=== PATIENT | male | born 1990 | race Caucasian/White ===

== ENCOUNTER 2018-04-28 15:31 | Emergency (ER) | payer BC ==
[2018-04-28] MEDS ORDERED: Acetaminophen/HYDROcodone 325-5 MG Tab PO ONE (15:46)
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
--- NOTE | 2018-04-28 16:45 | CR ---
INDICATION: Pain 2 views of the right shoulder. Findings: Normal articulation of the glenohumeral joint. No fractures or dislocations. Dictated by Ansley Clayton MD @ Apr 28 2018 4:44PM Signed by Dr. Ansley Clayton @ Apr 28 2018 4:44PM
[2018-04-28 20:53] VITALS: BP 142/87
== END 2018-04-28 17:25 | disposition home or self-care (01) ==
LOC: MW.ED 15:31
DX: S49.91XA Unspecified injury of right shoulder and upper arm, initial encounter (principal); W20.8XXA Other cause of strike by thrown, projected or falling object, initial encounter
CPT/HCPCS: 73030; 99283; A9270

== ENCOUNTER 2018-09-03 15:59 | Emergency (ER) | payer BC, OTHER ==
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
[2018-09-03] MEDS ORDERED: Ketorolac 60 MG/2 ML SDV IM ONE (16:25)
[2018-09-03] MEDS ORDERED: Lidocaine/Prilocaine 2.5-2.5% Crm 30 GM Tube TOP ONE ×2 (17:32→17:50)
[2018-09-03] MEDS ORDERED: Bacitracin Oint 1 GM U/D Packet TOP ONE (17:47)
[2018-09-03 18:15] VITALS: BP 158/95
== END 2018-09-03 18:17 | disposition home or self-care (01) ==
LOC: MW.ED 15:59
DX: T65.891A Toxic effect of other specified substances, accidental (unintentional), initial encounter (principal); T24.511A Corrosion of first degree of right thigh, initial encounter; Y99.0 Civilian activity done for income or pay
CPT/HCPCS: 96372; 99283; J1885

== ENCOUNTER 2018-11-23 12:39 | Emergency (ER) | payer BC ==
[2018-11-23] MEDS ORDERED: Ondansetron 4 MG/2 ML SDV IVPUSH ONE (12:43)
[2018-11-23] MEDS ORDERED: Sodium Chloride 0.9% 1,000 ML IV ONE (12:43)
[2018-11-23] MEDS ORDERED: Sodium Chloride 0.9% 10 ML Syringe FLUSH PRN (12:43)
[2018-11-23] MEDS ORDERED: Sodium Chloride 0.9% 2.5 ML Syringe FLUSH PRN (12:43)
--- NOTE | 2018-11-23 12:52 | EDM.PDOC ---
<Hailey Hunter - Last Filed: 11/23/18 14:12> ED HPI GENERAL MEDICAL PROBLEM - General Chief Complaint: Respiratory Problem Stated Complaint: SOB,VOMITING Time Seen by Provider: 11/23/18 12:41 - History of Present Illness INITIAL COMMENTS - FREE TEXT/NARRATIVE: HISTORY AND PHYSICAL: History of present illness: Patient is a 27-year-old male presents to the ED with complaint nausea, vomiting , and shortness of breath. He states he woke up this morning feeling sick to his stomach and short of breath and vomited. He states there was a small amount of blood in his vomit at that time. He vomited a second time and states it was boris red blood. He denies chest pain, abdominal pain, fevers, chills. He states he's had a cough since this morning. He denies significant past medical or surgical history. He denies smoking history. States he drinks socially and had "quite a few" drinks last night. He states he feels like he has something stuck in his throat. He is able to swallow without difficulty. Denies sore throat. Review of systems: As per history of present illness and below otherwise all systems reviewed and negative. Past medical history: As per history of present illness and as reviewed below otherwise noncontributory. Surgical history: As per history of present illness and as reviewed below otherwise noncontributory. Social history: No reported history of drug or alcohol abuse. Family history: As per history of present illness and as reviewed below otherwise noncontributory. Physical exam: General: Patient sitting comfortably in no acute distress and nontoxic appearing HEENT: Uvula is slightly swollen without erythema. Tonsils not visualized. Atraumatic, normocephalic, pupils reactive, negative for conjunctival pallor or scleral icterus, mucous membranes moist, throat clear, neck supple, nontender, trachea midline. No meningeal signs. Lungs: Clear to auscultation, breath sounds equal bilaterally, chest nontender. Heart: S1S2, regular, negative for clicks, rubs, or overt murmur. Abdomen: Soft, nondistended, nontender. Negative for masses or hepatosplenomegaly. Negative for costovertebral tenderness. No rigidity, rebound , guarding. Pelvis: Stable nontender. Genitourinary: Deferred. Rectal: Deferred. Extremities: Atraumatic, negative for cords or calf pain. Neurovascular unremarkable. Neuro: Awake, alert, oriented. Cranial nerves II through XII unremarkable. Cerebellum unremarkable. Motor and sensory unremarkable throughout. Exam nonfocal. Notes: Diagnostics: CBC, CMP, Chest x-ray Therapeutics: 1L NS IV 4mg Zofran IV 80mg Protonix IV Prescriptions: Pantoprazole 40mg Zofran 4mg ODT Medrol dosepak Impression: Gastritis Plan: Avoid NSAIDs and spicy food. Take medication as instructed Follow up with primary care provider Return to ED as needed as discussed Definitive disposition and diagnosis as appropriate pending reevaluation and review of above. - Related Data Allergies Allergy/AdvReac Type Severity Reaction Status Date / Time No Known Allergies Allergy Verified 11/23/18 12:44 Home Meds: Home Meds Ondansetron [Zofran ODT] 4 mg PO Q6H PRN #12 tab.dis 11/23/18 [Rx] Pantoprazole Sodium 40 mg PO DAILY #30 tablet.dr 11/23/18 [Rx] methylPREDNISolone [Medrol] 4 mg PO ASDIRECTED #1 tab.ds.pk 11/23/18 [Rx] ED ROS GENERAL - Review of Systems Review Of Systems: ROS reveals no pertinent complaints other than HPI. ED EXAM, GENERAL - Physical Exam Exam: See Below (see dictation) Course - Vital Signs Last Recorded V/S: Last Vital Signs Temp 97.2 F 11/23/18 14:39 Pulse 63 11/23/18 14:39 Resp 18 11/23/18 14:39 BP 150/80 H 11/23/18 14:39 Pulse Ox 97 11/23/18 14:39 - Orders/Labs/Meds Orders: Active Orders 24 hr Category Date Time Status Saline Lock Insert [OM.PC] Stat Oth 11/23/18 12:42 Ordered Labs: Laboratory Tests 11/23/18 11/23/18 Range/Units 13:10 13:10 WBC 4.74 (4.0-11.0) K/uL RBC 5.01 (4.50-5.90) M/uL Hgb 15.5 (13.0-17.0) g/dL Hct 45.8 (38.0-50.0) % MCV 91.4 (80.0-98.0) fL MCH 30.9 (27.0-32.0) pg MCHC 33.8 (31.0-37.0) g/dL RDW Std Deviation 45.3 (28.0-62.0) fl RDW Coeff of Leonarda 14 (11.0-15.0) % Plt Count 171 (150-400) K/uL MPV 12.40 H (7.40-12.00) fL Neut % (Auto) 55.5 (48.0-80.0) % Lymph % (Auto) 36.5 (16.0-40.0) % Dare % (Auto) 7.2 (0.0-15.0) % Eos % (Auto) 0.6 (0.0-7.0) % Baso % (Auto) 0.2 (0.0-1.5) % Neut # (Auto) 2.6 (1.4-5.7) K/uL Lymph # (Auto) 1.7 (0.6-2.4) K/uL Dare # (Auto) 0.3 (0.0-0.8) K/uL Eos # (Auto) 0.0 (0.0-0.7) K/uL Baso # (Auto) 0.0 (0.0-0.1) K/uL Nucleated RBC % 0.0 /100WBC Nucleated RBCs # 0 K/uL Sodium 144 (136-148) mmol/L Potassium 4.0 (3.5-5.1) mmol/L Chloride 107 (98-107) mmol/L Carbon Dioxide 23.6 (21.0-32.0) mmol/L BUN 12 (7.0-18.0) mg/dL Creatinine 1.1 (0.8-1.3) mg/dL Est Cr Clr Drug Dosing 108.76 mL/min Estimated GFR (MDRD) > 60.0 ml/min Glucose 108 H (74-106) mg/dL Calcium 9.4 (8.5-10.1) mg/dL Total Bilirubin 0.3 (0.2-1.0) mg/dL AST 36 (15-37) IU/L ALT 85 H (14-63) IU/L Alkaline Phosphatase 105 (46-116) U/L Total Protein 8.2 (6.4-8.2) g/dL Albumin 4.3 (3.4-5.0) g/dL Globulin 3.9 (2.6-4.0) g/dL Albumin/Globulin Ratio 1.1 (0.9-1.6) Meds: Medications Discontinued Medications Generic Name Dose Route Start Last Admin Trade Name Freq PRN Reason Stop Dose Admin Sodium Chloride 1,000 mls @ 999 mls/hr 11/23/18 12:43 11/23/18 13:14 Normal Saline IV 11/23/18 13:43 999 mls/hr .Bolus ONE Administration Sodium Chloride Confirm 11/23/18 13:19 11/23/18 13:44 Normal Saline Administered 11/23/18 13:20 Not Given Dose 20 mls @ as directed .ROUTE .STK-MED ONE Ondansetron HCl 4 mg 11/23/18 12:43 11/23/18 13:13 Zofran IVPUSH 11/23/18 12:44 4 mg ONETIME ONE Administration Pantoprazole Sodium 80 mg 11/23/18 12:59 11/23/18 13:22 Protonix Iv IVPUSH 11/23/18 13:00 80 mg .BOLUS ONE Administration Sodium Chloride 10 ml 11/23/18 12:43 Saline Flush FLUSH ASDIRECTED PRN Keep Vein Open Sodium Chloride 2.5 ml 11/23/18 12:43 Saline Flush FLUSH ASDIRECTED PRN Keep Vein Open Departure - Departure Time of Disposition: 14:15 Disposition: Home, Self-Care 01 Condition: Good Clinical Impression: Gastritis - Discharge Information Prescriptions: methylPREDNISolone [Medrol] 4 mg PO ASDIRECTED #1 tab.ds.pk Ondansetron [Zofran ODT] 4 mg PO Q6H PRN #12 tab.dis PRN Reason: Nausea/Vomiting Pantoprazole Sodium 40 mg PO DAILY #30 tablet.dr Instructions: Gastritis, Adult Referrals: PCP,Unknown [Primary Care Provider] - Forms: ED Department Discharge Additional Instructions: The following information is given to patients seen in the emergency department who are being discharged to home. This information is to outline your options for follow-up care. We provide all patients seen in our emergency department with a follow-up referral. The need for follow-up, as well as the timing and circumstances, are variable depending upon the specifics of your emergency department visit. If you don't have a primary care physician on staff, we will provide you with a referral. We always advise you to contact your personal physician following an emergency department visit to inform them of the circumstance of the visit and for follow-up with them and/or the need for any referrals to a consulting specialist. The emergency department will also refer you to a specialist when appropriate. This referral assures that you have the opportunity for follow-up care with a specialist. All of these measure are taken in an effort to provide you with optimal care, which includes your follow-up. Under all circumstances we always encourage you to contact your private physician who remains a resource for coordinating your care. When calling for follow-up care, please make the office aware that this follow-up is from your recent emergency room visit. If for any reason you are refused follow-up, please contact the [facility] Emergency Department at and asked to speak to the emergency department charge nurse. [facility] [address] [place] [id number] [place] [address] Avoid NSAIDs and spicy food. Take medication as instructed Follow up with primary care provider Return to ED as needed as discussed - My Orders Last 24 Hours: My Active Orders 11/23/18 12:42 Saline Lock Insert [OM.PC] Stat - Assessment/Plan Last 24 Hours: My Active Orders 11/23/18 12:42 Saline Lock Insert [OM.PC] Stat <Antonia Lazaro - Last Filed: 11/23/18 18:19> ED HPI GENERAL MEDICAL PROBLEM - General Source of Information: Reports: Patient History Limitations: Reports: No Limitations - History of Present Illness INITIAL COMMENTS - FREE TEXT/NARRATIVE: History of present illness: [] Review of systems: As per history of present illness and below otherwise all systems reviewed and negative. Past medical history: As per history of present illness and as reviewed below otherwise noncontributory. Surgical history: As per history of present illness and as reviewed below otherwise noncontributory. Social history: No reported history of drug or alcohol abuse. Family history: As per history of present illness and as reviewed below otherwise noncontributory. Physical exam: General: Well developed, well nourished in NAD HEENT: Atraumatic, normocephalic, pupils reactive, negative for conjunctival pallor or scleral icterus, mucous membranes moist, throat clear, neck supple, nontender, trachea midline. Lungs: Clear to auscultation, breath sounds equal bilaterally, chest nontender. Heart: S1S2, regular, negative for clicks, rubs, or JVD. Abdomen: NABS, Soft, nondistended, nontender. Negative for masses or hepatosplenomegaly. Negative for costovertebral tenderness. Pelvis: Stable nontender. Genitourinary: Deferred. Rectal: Deferred. Extremities: Atraumatic, negative for cords or calf pain. Neurovascular unremarkable. Neuro: Awake, alert, oriented. Cranial nerves II through XII unremarkable. Cerebellum unremarkable. Motor and sensory unremarkable throughout. Exam nonfocal. Skin:warm and dry Diagnostics: Therapeutics: ED Course: Impression: Prescriptions: Plan: Definitive disposition and diagnosis as appropriate pending reevaluation and review of above. throat Pain Score (Numeric/FACES): 6 Past Medical History - Past Health History Medical/Surgical History: Denies Medical/Surgical History HEENT History: Reports: None Cardiovascular History: Reports: None Respiratory History: Reports: None Gastrointestinal History: Reports: None Genitourinary History: Reports: None Musculoskeletal History: Reports: None Neurological History: Reports: None Psychiatric History: Reports: None Endocrine/Metabolic History: Reports: None Hematologic History: Reports: None Immunologic History: Reports: None Oncologic (Cancer) History: Reports: None Dermatologic History: Reports: None - Infectious Disease History Infectious Disease History: Reports: Chicken Pox - Past Surgical History Head Surgeries/Procedures: Reports: None HEENT Surgical History: Reports: Other (See Below) Other HEENT Surgeries/Procedures: Jaw surgery Cardiovascular Surgical History: Reports: None Respiratory Surgical History: Reports: None GI Surgical History: Reports: None Male Surgical History: Reports: None Endocrine Surgical History: Reports: None Neurological Surgical History: Reports: None Musculoskeletal Surgical History: Reports: None Oncologic Surgical History: Reports: None Dermatological Surgical History: Reports: None Social & Family History - Family History Family Medical History: Noncontributory - Tobacco Use Smoking Status *Q: Never Smoker - Caffeine Use Caffeine Use: Reports: Soda - Recreational Drug Use Recreational Drug Use: No Course - Orders/Labs/Meds Labs: Laboratory Tests 11/23/18 11/23/18 Range/Units 13:10 13:10 WBC 4.74 (4.0-11.0) K/uL RBC 5.01 (4.50-5.90) M/uL Hgb 15.5 (13.0-17.0) g/dL Hct 45.8 (38.0-50.0) % MCV 91.4 (80.0-98.0) fL MCH 30.9 (27.0-32.0) pg MCHC 33.8 (31.0-37.0) g/dL RDW Std Deviation 45.3 (28.0-62.0) fl RDW Coeff of Leonarda 14 (11.0-15.0) % Plt Count 171 (150-400) K/uL MPV 12.40 H (7.40-12.00) fL Neut % (Auto) 55.5 (48.0-80.0) % Lymph % (Auto) 36.5 (16.0-40.0) % Dare % (Auto) 7.2 (0.0-15.0) % Eos % (Auto) 0.6 (0.0-7.0) % Baso % (Auto) 0.2 (0.0-1.5) % Neut # (Auto) 2.6 (1.4-5.7) K/uL Lymph # (Auto) 1.7 (0.6-2.4) K/uL Dare # (Auto) 0.3 (0.0-0.8) K/uL Eos # (Auto) 0.0 (0.0-0.7) K/uL Baso # (Auto) 0.0 (0.0-0.1) K/uL Nucleated RBC % 0.0 /100WBC Nucleated RBCs # 0 K/uL Sodium 144 (136-148) mmol/L Potassium 4.0 (3.5-5.1) mmol/L Chloride 107 (98-107) mmol/L Carbon Dioxide 23.6 (21.0-32.0) mmol/L BUN 12 (7.0-18.0) mg/dL Creatinine 1.1 (0.8-1.3) mg/dL Est Cr Clr Drug Dosing 108.76 mL/min Estimated GFR (MDRD) > 60.0 ml/min Glucose 108 H (74-106) mg/dL Calcium 9.4 (8.5-10.1) mg/dL Total Bilirubin 0.3 (0.2-1.0) mg/dL AST 36 (15-37) IU/L ALT 85 H (14-63) IU/L Alkaline Phosphatase 105 (46-116) U/L Total Protein 8.2 (6.4-8.2) g/dL Albumin 4.3 (3.4-5.0) g/dL Globulin 3.9 (2.6-4.0) g/dL Albumin/Globulin Ratio 1.1 (0.9-1.6)
[2018-11-23] MEDS ORDERED: Pantoprazole 40 MG Vial IVPUSH ONE (12:59)
[2018-11-23] MEDS ORDERED: Sodium Chloride 0.9% 20 ML ONE (13:19)
[2018-11-23 13:41] LABS: BLOOD UREA NITROGEN,BUN 12 mg/dL (7.0-18.0); CARBON DIOXIDE,CO2 23.6 mmol/L (21.0-32.0); CHLORIDE,CL 107 mmol/L (98-107); GLUCOSE RANDOM 108 mg/dL (74-106); SODIUM,NA 144 mmol/L (136-148)
--- NOTE | 2018-11-23 14:02 | CR ---
INDICATION: Shortness of breath Findings: A single portable CXR shows a normal cardiac and mediastinal silhouette. The lungs show no focal pulmonary opacities. Sharp pleural margins. No pneumothorax. Impression: No evidence of acute pulmonary abnormalities. Dictated by: Mike Clayton MD @ 11/23/2018 14:02:22 (Electronically Signed)
[2018-11-23 14:39] VITALS: BP 150/80; PULSE 63
== END 2018-11-23 14:40 | disposition home or self-care (01) ==
LOC: MW.ED 12:39
DX: K29.70 Gastritis, unspecified, without bleeding (principal); Z79.899 Other long term (current) drug therapy
CPT/HCPCS: 36415; 71045; 80053; 85025; 96361; 96374; 96375; 99285; C9113; J2405; J7040

== ENCOUNTER 2020-07-30 16:47 | Emergency (ER) | payer OTHER ==
--- NOTE | 2020-07-30 17:05 | EDM.PDOC ---
ED HPI GENERAL MEDICAL PROBLEM - General Chief Complaint: Respiratory Problem Stated Complaint: TROUBLE BREATHING Time Seen by Provider: 07/30/20 16:48 Source of Information: Reports: Patient History Limitations: Reports: No Limitations - History of Present Illness INITIAL COMMENTS - FREE TEXT/NARRATIVE: HISTORY AND PHYSICAL: History of present illness: The patient is a 29-year-old male who started having Covid-like symptoms 14 days ago and tested 7 days ago positive presents to the emergency department with increased cough, shortness of breath, and headache. The patient stated he started feeling better yesterday but whenever he moves around the cough makes him short of breath and fatigue. Patient denies any fever, chills, change in vision, syncope or near syncope. Denies any chest pain, back pain. Denies any abdominal pain, nausea, vomiting, diarrhea, constipation or dysuria. Has not noted any blood in urine or stool. Patient has been eating and drinking appropriately. In the emergency department the patient is hemodynamically stable with a blood pressure of 140/86 and a pulse of 80. He is afebrile with a temperature of 97.2. Review of systems: As per history of present illness and below otherwise all systems reviewed and negative. Past medical history: As per history of present illness and as reviewed below otherwise noncontributory. Surgical history: As per history of present illness and as reviewed below otherwise noncontributory. Social history: See social history for further information Family history: As per history of present illness and as reviewed below otherwise noncontributory. Physical exam: General: Well developed and well nourished. Alert and orientated x 3. Nontoxic in appearance and in no acute distress. Vital signs are stable and have been reviewed by me. Nursing notes were reviewed. HEENT: Atraumatic, normocephalic, pupils equal and reactive bilaterally, negative for conjunctival pallor or scleral icterus, mucous membranes moist, TMs normal bilaterally, throat clear, neck supple, nontender, trachea midline. No drooling or trismus noted. No meningeal signs. No hot potato voice noted. Lungs: Clear to auscultation bilaterally. No wheezes, rales, or rhonchi. Chest nontender. Normal work of breathing, no accessory muscles used. Heart: S1S2, regular rate and rhythm without overt murmur, gallops, or rubs. No JVD. No peripheral edema Abdomen: Soft, nondistended, nontender. Normoactive bowel sounds. Negative for masses or costovertebral tenderness. Pelvis: Stable nontender. Genitourinary/Rectal: Deferred. Skin: Intact, warm, dry. No lesions or rashes noted. Hematologic: No petechiae or purpra. Mucosa appropriate color and normal nail bed color and refill. Extremities: Atraumatic, moves all extremities per self without difficulty or deficits, negative for cords or calf pain. Neurovascular unremarkable. Neuro: Awake, alert, oriented. Cranial nerves II through XII unremarkable. Cerebellum unremarkable. Motor and sensory unremarkable throughout. Exam nonfocal. Psychiatric: Mood and affect are appropriate. Normal thought process. Answering questions appropriately. Notes: *This patient was seen and evaluated during the 2019 SARS-CoV-2 novel coronavirus pandemic period. Community viral transmission is ongoing at time of this encounter and the emergency department is operating under pandemic response procedures. After discussion and examination the patient is agreeable to blood work and a chest x-ray. The radiology check just reported to me that the patient started swaying twice while in the x-ray department. Radiology reading of chest x-ray: IMPRESSION: Unremarkable chest. He is unremarkable. CMP: Creatinine 1.4, calcium 8.2. In the patient was given 1 L of IV fluids. His orthostatic vitals were negative. Post IV fluids the patient states he feels much better and is ready for discharge. I discussed with the patient the need to stay off work and follow-up with the public health department regarding his continued symptoms. The patient is agreeable to the plan I have talked with the patient about today's findings, in addition to providing specific details for plan of care. Reassessment at the time of disposition demonstrates that the patient is in no acute distress. The patient is stable for discharge, counseling was provided and we discussed in great detail signs and symptoms that would prompt them to return to the Emergency Department. Medication, follow up and supportive care measures were reviewed and discussed. Voices understanding and is agreeable to plan of care. Denies any further questions or concerns at this time. Diagnostics: CBC, CMP, CXR Therapeutics: IV fluids Prescription: Promethazine/codeine 5 ml every 4-6 hours as needed for cough with a max of 30 mL/day Impression: COVID-19 Plan: 1. You were evaluated today on an emergent basis. Your cough, fatigue and shortness of breath were evaluated with blood work, and a chest x-ray. Your blood work was essentially normal and your chest x-ray was negative. You were at the end of your 14-day quarantine for COVID-19, however, I will give you a note to take on most of next week. You need to get in contact with the local health department to let them know that you are having symptoms over the 14 days. Can you continue to take fluids such as Powerade or Gatorade. Continue to eat as normal. I have prescribed you promethazine with codeine 5 mils every 4-6 hours as needed for the cough with a max of 30 mL/day. 2. You can alternate Tylenol and ibuprofen as needed for pain and fever management. 3. We encourage you to follow up with your primary care provider and/or recommended specialist in the next few days for re-evaluation and further care/management. 4. If your symptoms should worsen, new symptoms develop or any of the signs and symptoms we discussed should arise please return to the emergency room or call 911 (if needed). Definitive disposition and diagnosis as appropriate pending reevaluation and review of above. chest Pain Score (Numeric/FACES): 2 - Related Data Allergies Allergy/AdvReac Type Severity Reaction Status Date / Time No Known Allergies Allergy Verified 07/30/20 16:59 Home Meds: Home Meds . [No Known Home Meds] 07/30/20 [History] Past Medical History - Past Health History Medical/Surgical History: Denies Medical/Surgical History HEENT History: Reports: None Cardiovascular History: Reports: None Respiratory History: Reports: None Gastrointestinal History: Reports: None Genitourinary History: Reports: None Musculoskeletal History: Reports: None Neurological History: Reports: None Psychiatric History: Reports: None Endocrine/Metabolic History: Reports: None Hematologic History: Reports: None Immunologic History: Reports: None Oncologic (Cancer) History: Reports: None Dermatologic History: Reports: None - Infectious Disease History Infectious Disease History: Reports: Chicken Pox - Past Surgical History Head Surgeries/Procedures: Reports: None HEENT Surgical History: Reports: Other (See Below) Other HEENT Surgeries/Procedures: Jaw surgery Cardiovascular Surgical History: Reports: None Respiratory Surgical History: Reports: None GI Surgical History: Reports: None Male Surgical History: Reports: None Endocrine Surgical History: Reports: None Neurological Surgical History: Reports: None Musculoskeletal Surgical History: Reports: None Oncologic Surgical History: Reports: None Dermatological Surgical History: Reports: None Social & Family History - Family History Family Medical History: No Pertinent Family History - Caffeine Use Caffeine Use: Reports: Soda ED ROS GENERAL - Review of Systems Review Of Systems: Comprehensive ROS is negative, except as noted in HPI. ED EXAM, GENERAL - Physical Exam Exam: See Below (See dictation) Course - Vital Signs Last Recorded V/S: Last Vital Signs Temp 97.2 F 07/30/20 16:52 Pulse 62 07/30/20 19:25 Resp 18 07/30/20 19:25 BP 130/70 07/30/20 19:25 Pulse Ox 96 07/30/20 19:25 Orthostatic Blood Pressure [ 134/71 Standing] Orthostatic Blood Pressure [ 138/72 Sitting] Orthostatic Blood Pressure [ 133/64 Supine] - Orders/Labs/Meds Labs: Laboratory Tests 07/30/20 07/30/20 Range/Units 17:26 17:26 WBC 3.78 L (4.0-11.0) K/uL RBC 4.91 (4.50-5.90) M/uL Hgb 14.9 (13.0-17.0) g/dL Hct 44.2 (38.0-50.0) % MCV 90.0 (80.0-98.0) fL MCH 30.3 (27.0-32.0) pg MCHC 33.7 (31.0-37.0) g/dL RDW Std Deviation 43.6 (28.0-62.0) fl RDW Coeff of [place] 13 (11.0-15.0) % Plt Count 153 (150-400) K/uL MPV 12.20 H (7.40-12.00) fL Neut % (Auto) 64.5 (48.0-80.0) % Lymph % (Auto) 28.3 (16.0-40.0) % [place] % (Auto) 6.1 (0.0-15.0) % Eos % (Auto) 1.1 (0.0-7.0) % Baso % (Auto) 0.0 (0.0-1.5) % Neut # (Auto) 2.4 (1.4-5.7) K/uL Lymph # (Auto) 1.1 (0.6-2.4) K/uL [place] # (Auto) 0.2 (0.0-0.8) K/uL Eos # (Auto) 0.0 (0.0-0.7) K/uL Baso # (Auto) 0.0 (0.0-0.1) K/uL Nucleated RBC % 0.0 /100WBC Nucleated RBCs # 0 K/uL Sodium 139 (136-148) mmol/L Potassium 4.1 (3.5-5.1) mmol/L Chloride 104 (98-107) mmol/L Carbon Dioxide 26.0 (21.0-32.0) mmol/L BUN 13 (7.0-18.0) mg/dL Creatinine 1.4 H (0.8-1.3) mg/dL Est Cr Clr Drug Dosing 83.91 mL/min Estimated GFR (MDRD) 59.1 ml/min Glucose 91 (74-106) mg/dL Calcium 8.2 L (8.5-10.1) mg/dL Total Bilirubin 0.5 (0.2-1.0) mg/dL AST 31 (15-37) IU/L ALT 51 (14-63) IU/L Alkaline Phosphatase 111 (46-116) U/L Total Protein 8.5 H (6.4-8.2) g/dL Albumin 3.9 (3.4-5.0) g/dL Globulin 4.6 H (2.6-4.0) g/dL Albumin/Globulin Ratio 0.9 (0.9-1.6) Meds: Medications Discontinued Medications Generic Name Dose Route Start Last Admin Trade Name Freq PRN Reason Stop Dose Admin Benzonatate 200 mg 07/30/20 17:41 07/30/20 17:59 Benzonatate 100 Mg Cap PO 07/30/20 17:42 200 mg ONETIME ONE Administration Sodium Chloride 1,000 mls @ 999 mls/hr 07/30/20 17:44 07/30/20 18:01 Normal Saline IV 07/30/20 18:44 999 mls/hr .BOLUS ONE Administration Ketorolac Tromethamine 60 mg 07/30/20 17:14 07/30/20 17:27 Ketorolac 60 Mg/2 Ml Sdv IM 07/30/20 17:15 60 mg ONETIME ONE Administration Departure - Departure Time of Disposition: 19:14 Disposition: Home, Self-Care 01 Condition: Good Clinical Impression: COVID-19, Cough - Discharge Information *PRESCRIPTION DRUG MONITORING PROGRAM REVIEWED*: Not Applicable *COPY OF PRESCRIPTION DRUG MONITORING REPORT IN PATIENT MIRNA: Not Applicable Instructions: COVID-19 Frequently Asked Questions, Cough, Adult, [id number] Referrals: PCP,None [Primary Care Provider] - Forms: ED Department Discharge Additional Instructions: The following information is given to patients seen in the emergency department who are being discharged to home. This information is to outline your options for follow-up care. We provide all patients seen in our emergency department with a follow-up referral. The need for follow-up, as well as the timing and circumstances, are variable depending upon the specifics of your emergency department visit. If you don't have a primary care physician on staff, we will provide you with a referral. We always advise you to contact your personal physician following an emergency department visit to inform them of the circumstance of the visit and for follow-up with them and/or the need for any referrals to a consulting specialist. The emergency department will also refer you to a specialist when appropriate. This referral assures that you have the opportunity for follow-up care with a specialist. All of these measure are taken in an effort to provide you with optimal care, which includes your follow-up. Under all circumstances we always encourage you to contact your private physician who remains a resource for coordinating your care. When calling for follow-up care, please make the office aware that this follow-up is from your recent emergency room visit. If for any reason you are refused follow-up, please contact the [facility] Emergency Department at and asked to speak to the emergency department charge nurse. [facility] [address] [place] [id number] [facility] [address] [place] [id number] Plan: 1. You were evaluated today on an emergent basis. Your cough, fatigue and shortness of breath were evaluated with blood work, and a chest x-ray. Your blood work was essentially normal and your chest x-ray was negative. You were at the end of your 14-day quarantine for COVID-19, however, I will give you a note to take on most of next week. You need to get in contact with the local health department to let them know that you are having symptoms over the 14 days. Can you continue to take fluids such as Powerade or Gatorade. Continue to eat as normal. I have prescribed you promethazine with codeine 5 mils every 4-6 hours as needed for the cough with a max of 30 mL/day. 2. You can alternate Tylenol and ibuprofen as needed for pain and fever management. 3. We encourage you to follow up with your primary care provider and/or recommended specialist in the next few days for re-evaluation and further care/management. 4. If your symptoms should worsen, new symptoms develop or any of the signs and symptoms we discussed should arise please return to the emergency room or call 911 (if needed). Sepsis Event Note (ED) - Evaluation Sepsis Screening Result: No Definite Risk - Focused Exam Vital Signs: Vital Signs Temp Pulse Resp BP Pulse Ox 07/30/20 19:25 62 18 130/70 96 07/30/20 16:52 97.2 F 76 20 140/86 94 L
[2020-07-30] MEDS ORDERED: Ketorolac 60 MG/2 ML SDV IM ONE (17:14)
[2020-07-30] MEDS ORDERED: Benzonatate 100 MG Cap PO ONE (17:41)
[2020-07-30] MEDS ORDERED: Sodium Chloride 0.9% 1,000 ML IV ONE (17:44)
--- NOTE | 2020-07-30 17:52 | CR ---
INDICATION: Pt w/covid, dyspnea, and cough. TECHNIQUE: Chest 2 views. COMPARISON: 11/23/18 FINDINGS: Cardiovascular and mediastinum: Heart size and vasculature are normal in caliber and appearance. Mediastinum is within normal limits. Lungs and pleural spaces: Lungs are clear. No sign of infiltrate or mass. No sign of pleural effusion. No pneumothorax. Bones and soft tissues: No significant findings. IMPRESSION: Unremarkable chest. Dictated by: Franklin Joya MD @ 07/30/2020 17:49:53 (Electronically Signed)
[2020-07-30 18:02] LABS: POTASSIUM,K 4.1 mmol/L (3.5-5.1)
[2020-07-30 19:25] VITALS: PULSE 62
[2020-07-30 19:26] VITALS: BP 130/70
== END 2020-07-30 19:26 | disposition home or self-care (01) ==
LOC: MW.ED 16:47
DX: U07.1 COVID-19 (principal)
CPT/HCPCS: 36415; 71046; 80053; 85025; 96372; 99285; A9270; J1885; J7030; 99283